=== PATIENT | male | born 1960 | race Two or more races ===

== ENCOUNTER 2017-12-05 10:05 | Emergency (ER) | payer OTHER ==
[2017-12-05 10:17] VITALS: RESP 18
[2017-12-05] MEDS ORDERED: PROPARACAINE 0.5% OPHTH DROPS 15 ML BTL RIGHT EYE STA (10:53)
--- NOTE | 2017-12-05 12:08 | ED ---
Eye Problem HPI - General Chief complaint: ENT Stated complaint: Eye Pain Time Seen by Provider: 12/05/17 10:21 Source: patient Mode of arrival: ambulatory Limitations: no limitations - History of Present Illness Initial comments: 57-year-old male presented for evaluation of right eye pain. States he was working with wood yesterday and a piece flipped and hit him in the eye. He immediately went to a store about a commercial irrigation kit which she states improved his pain and he felt as though the foreign body was removed. However since then he has continued to have burning sensation in the right eye with redness to the conjunctiva. States there is pain to the eye but there is no pain with extraocular muscle movement and no foreign body sensation. He has not tried any other products for pain relief. Denies any other injuries. Onset/Timin -: days(s) Onset Description: sudden Location: right eye Place: street/outdoors If Injury: direct trauma, other (working with wood and a piece flew into his eye ) Severity: moderate Severity scale (1-10): 7 If Pain, Quality: burning Consistency: constant Context: trauma, injury Associated Symptoms: none Treatments Prior to Arrival: none, irrigated eye (extensively with a commercial product. no longer feels the foreign body but continues to burn.) - Related Data Home Medications Medication Instructions Recorded Confirmed Hydrocortisone Cream 1 applic TOPICAL BID PRN 06/18/14 06/18/14 [Hydrocortisone 1% Cream] Previous Rx's Medication Instructions Recorded Cephalexin [Keflex] 500 mg PO Q6HR #40 cap 06/19/14 Ketorolac [Toradol] 10 mg PO Q6HR PRN #20 tab 06/19/14 Erythromycin Ophth Oint [Romycin 1 applic RIGHT EYE QID #1 tube 12/05/17 Ophth Oint] Allergies Allergy/AdvReac Type Severity Reaction Status Date / Time No Known Allergies Allergy Verified 12/05/17 10:17 Review of Systems ROS Statement: Those systems with pertinent positive or pertinent negative responses have been documented in the HPI. ROS Other: All systems not noted in ROS Statement are negative. Constitutional: Denies: fever, chills Eyes: Reports: eye pain, eye discharge (clear). Denies: vision change ENT: Denies: ear pain, throat pain Respiratory: Denies: cough, dyspnea Cardiovascular: Denies: chest pain, palpitations Endocrine: Denies: fatigue, polydipsia, polyuria Gastrointestinal: Denies: abdominal pain, nausea, vomiting Genitourinary: Denies: urgency, dysuria Musculoskeletal: Denies: back pain, arthralgia, myalgia Skin: Denies: rash, lesions Neurological: Denies: headache, weakness Psychiatric: Denies: anxiety, depression Hematological/Lymphatic: Denies: easy bleeding, easy bruising Past Medical History Past Medical History: No Reported History Additional Past Medical History / Comment(s): 06/18/14 Pt presented to [facility] ER with "infection" in his L foot's 3rd toe x 1 day. Pt states yesterday he noticed irritation to his L foot 3rd toe. Pt tried to remove what he thought was an ingrown hair and "alittle clear pus came out." Swelling and redness and pain increased over nite to the point that he cannot bear wt on the L foot. Pt denies injury to this toe or foot. Other HX: NONE History of Any Multi-Drug Resistant Organisms: None Reported Past Surgical History: Orthopedic Surgery Additional Past Surgical History / Comment(s): Pt has had R knee arthroscopy. Past Anesthesia/Blood Transfusion Reactions: No Reported Reaction Additional Past Anesthesia/Blood Transfusion Reaction / Comment(s): Pt has never recieved blood. Past Psychological History: No Psychological Hx Reported Smoking Status: Former smoker Past Alcohol Use History: Occasional Past Drug Use History: Marijuana - Past Family History Father Family Medical History: No Reported History Mother Family Medical History: Cancer Additional Family Medical History / Comment(s): Mother is alive at age 83 yrs. She survived ovarian cancer. General Exam Limitations: no limitations General appearance: alert, in no apparent distress Head exam: Present: atraumatic, normocephalic Eye exam: Present: PERRL, EOMI, conjunctival injection. Absent: scleral icterus , periorbital swelling, periorbital tenderness ENT exam: Present: normal exam, mucous membranes moist Respiratory exam: Present: normal lung sounds bilaterally. Absent: respiratory distress, wheezes, rales, rhonchi, stridor Cardiovascular Exam: Present: regular rate, normal rhythm, normal heart sounds. Absent: systolic murmur, diastolic murmur, rubs, gallop, clicks GI/Abdominal exam: Present: soft. Absent: tenderness Rectal exam: Present: deferred Neurological exam: Present: alert, oriented X3 Psychiatric exam: Present: normal affect, normal mood Skin exam: Present: warm, dry, intact Course Vital Signs 12/05/17 10:16 Temperature 97.7 F Pulse Rate 68 Respiratory 18 Rate Blood Pressure 156/93 O2 Sat by Pulse 96 Oximetry Medical Decision Making - Medical Decision Making 57-year-old male presenting for evaluation of right eye pain. States yesterday he had a piece of wood fly into his eye while he was doing woodwork. He immediately went to a store and bought a commercial eye irrigation kit and no longer felt like the foreign body was there however continues to have pain. On physical examination he has conjunctival injection. PERRLA and EOMI. Visual acuity is 20/30 in the right eye, 20/40 in the left eye, and 20/25 overall. Marketed improvement in symptoms with proparacaine and on fluorescein staining abrasion was noted to the conjunctiva. Patient does not wear contacts. We'll start on topical antibiotics and have follow-up with ophthalmology Dr. Crook. Given return instructions. The pt acknowledged an understanding of all information provided and agreed with this plan of care. Disposition Clinical Impression: Corneal abrasion, right Disposition: HOME SELF-CARE Condition: Stable Instructions: Corneal Abrasion (ED) Additional Instructions: Please use medication as discussed. Please follow up with family doctor if symptoms have not improved over the next two days. Please return to the emergency room if your symptoms increase or worsen or for any other concerns. You will also be given a referral for an [employer] who you should follow up within 24 hrs. Please call in the morning to arrange an appointment but return to this ED if unable to do so. Prescriptions: Erythromycin Ophth Oint [Romycin Ophth Oint] 1 applic RIGHT EYE QID #1 tube Is patient prescribed a controlled substance at d/c from ED?: No Referrals: Merna Barber MD [STAFF PHYSICIAN] - 1-2 days Tim Crook MD [STAFF PHYSICIAN] - 1-2 days Time of Disposition: 12:18
[2017-12-05 12:24] VITALS: BP 149/78; PULSE 61; TEMP 97.6
== END 2017-12-05 12:24 | disposition home or self-care (01) ==
LOC: EC 10:05
DX: S05.01XA Injury of conjunctiva and corneal abrasion without foreign body, right eye, initial encounter (principal); Z87.891 Personal history of nicotine dependence; W22.8XXA Striking against or struck by other objects, initial encounter; Y92.410 Unspecified street and highway as the place of occurrence of the external cause; Y93.89 Activity, other specified
CPT/HCPCS: 99283